=== PATIENT | female | born 1965 | race Caucasian/White ===

== ENCOUNTER → 2017-03-10 | Outpatient (CLI) | payer OTHER ==
--- NOTE | 2017-03-10 10:33 | PCVCIMAG ---
APPROVED REPORT Study performed: 03/10/2017 08:00:55 EXAM: Comprehensive 2D, Doppler, and color-flow Echocardiogram Patient Location: Echo lab Status: routine Other Information Study Quality: Adequate Risk Factors: Cardiac Risk Factors: HTN, Hyperlipidemia Indications Neck pain, tobacco use 2D Dimensions LVEF(%): 49.70 (>50%) IVSd: 9.24 (7-11mm) LVDd: 43.77 mm PWd: 9.33 (7-11mm) LVDs: 32.82 (25-40mm) Left Atrium: 35.48 (27-40mm) Aortic Root: 29.65 mm LV Single Plane 4CH: 55.36 % LV Single Plane 2CH: 52.78 %Burris's LVEF: 54.07 % Biplane EF: 54.4 % Volumes Left Atrial Volume (Systole) Single Plane 4CH: 45.68 mLSingle Plane 2CH: 59.74 mL LA ESV Index: 30.00 mL/m2 Aortic Valve AoV Peak Tc.: 1.39 m/s AO Peak Gr.: 7.73 mmHgLVOT Max P.55 mmHg LVOT Max V: 0.94 m/s Mitral Valve E/A Ratio: 0.9 MV Decel. Time: 266.40 ms MV E Max Tc.: 0.72 m/s MV A Tc.: 0.79 m/s IVRT: 124.57 ms Pulmonary Valve PV Peak Tc.: 0.62 m/sPV Peak Gr.: 1.53 mmHg Pulmonary Vein P Vein S: 0.25 m/sP Vein A: 0.31 m/s P Vein D: 0.37 m/sP Vein A Dur.: 131.5 msec P Vein S/D Ratio: 0.68 Tricuspid Valve TR Peak Tc.: 2.45 m/s TR Peak Gr.: 24.01 mmHg Left Ventricle The left ventricle is normal size. There is normal LV segmental wall motion. There is normal left ventricular wall thickness. Left ventricular systolic function is normal. The left ventricular ejection fraction is within the normal range. LVEF is 55-60%. Grade I - abnormal relaxation pattern. Right Ventricle The right ventricle is normal size. The right ventricular systolic function is normal. Atria The left atrium size is normal. The right atrium size is normal. Aortic Valve The Aortic valve is sclerotic. Trace aortic regurgitation is present. There is no aortic valvular stenosis. Mitral Valve There is mild anterior mitral valve leaflet prolapse with mild myxomatous appearance. Mild posterior mitral regurgitation. No evidence of mitral valve stenosis. Tricuspid Valve The tricuspid valve is normal in structure. Trace tricuspid regurgitation with PAP of 31 mmHg. Pulmonic Valve The pulmonary valve is normal in structure. There is no pulmonic valvular regurgitation. Great Vessels The aortic root is normal in size. IVC is normal in size and collapses with >50% inspiration Pericardium There is no pericardial effusion. <Conclusion> The left ventricle is normal size. There is normal left ventricular wall thickness. Left ventricular systolic function is normal. Grade I - abnormal relaxation pattern. The right ventricle is normal size. The left atrium size is normal. Trace aortic regurgitation is present. There is mild anterior mitral valve leaflet prolapse with mild myxomatous appearance. Mild posterior mitral regurgitation. Trace tricuspid regurgitation with PAP of 31 mmHg.
--- NOTE | 2017-03-10 12:22 | PCVCIMAG ---
APPROVED REPORT Patient Location: Echo lab Room #: Conclusion Indications- Neck Pain, HTN, tobacco use, HLP The patient exercised according to the [facility] protocol for 9 Minutes; acheiving 10.1 METS. Resting heart rate of 80 bpm mulugeta to 150 bpm which is 88% of maximal, age predicted heart rate. Resting blood pressure 122/82 mulugeta to 150/70 mmHg max. The exercise test was stopped due to fatigue and maximal effort. No chest pain. ECG: Sinus rhythm, otherwise within normal limits. During exercise, there were no significant arrhythmias or ST segment changes. Impression: 1. Clinical response, nonischemic. 2. Stress ECG response, nonischemic. 3. Exercise capacity, below average.
== END | disposition home or self-care (01) ==
LOC: PCVCIMAG 08:04
PROVIDERS: ATTEND Internal Medicine Cardiovascular Disease
DX: I08.3 Combined rheumatic disorders of mitral, aortic and tricuspid valves (principal); I25.10 Atherosclerotic heart disease of native coronary artery without angina pectoris; I10 Essential (primary) hypertension; E78.00 Pure hypercholesterolemia, unspecified; Z72.0 Tobacco use
CPT/HCPCS: 93017; 93306; G0463